=== PATIENT | female | born 1940 | race Caucasian/White ===

== ENCOUNTER 2017-11-21 10:11 | Emergency (ER) | payer MEDICARE, OTHER ==
[2017-11-21 13:44] VITALS: BP 118/72
== END 2017-11-21 13:50 | disposition home or self-care (01) ==
LOC: ED 10:11
DX: S80.02XA Contusion of left knee, initial encounter (principal); M25.511 Pain in right shoulder; E78.5 Hyperlipidemia, unspecified; W18.30XA Fall on same level, unspecified, initial encounter; Y92.000 Kitchen of unspecified non-institutional (private) residence as the place of occurrence of the external cause